=== PATIENT | male | born 1970 | race Caucasian/White ===

== ENCOUNTER 2020-02-22 01:00 | Emergency (ER) | payer SELFPAY ==
[~2020-02-22] VITALS: Ht 165.1 cm; Wt 52.2 kg
--- NOTE | 2020-02-22 01:04 | NUR ---
PT SANDRA DOMINGUEZS. TAKEN TO OVERFLOW TENT
[2020-02-22 01:10] VITALS: BP 108/60
--- NOTE | 2020-02-22 01:10 | NUR ---
PT ASSESSMENT COMPLETE. PT PLACED IN TENT TO A/W EVALUATION. PT WEARING MASK AT THIS TIME.
[2020-02-22] MEDS ORDERED: KETOROLAC 60 MG/2 ML VIAL IM ONE (01:35)
[2020-02-22 01:51] VITALS: BP 108/60
--- NOTE | 2020-02-22 01:51 | NUR ---
COVID SWAB COLLECTED - SENT TO LAB.
--- NOTE | 2020-02-22 01:52 | NUR ---
Patient discharged with v/s stable. Written and verbal after care instructions given and explained. Patient alert, oriented and verbalized understanding of instructions. Ambulatory with steady gait. All questions addressed prior to discharge. ID band removed. Patient advised to follow up with PMD. Rx of MOTRIN, ZOFRAN given. Patient educated on indication of medication including possible reaction and side effects. Opportunity to ask questions provided and answered.
== END 2020-02-22 01:52 | disposition home or self-care (01) ==
LOC: MED 01:00
DX: M79.10 Myalgia, unspecified site (principal); R11.0 Nausea; F15.10 Other stimulant abuse, uncomplicated; Z20.828 Contact with and (suspected) exposure to other viral communicable diseases
CPT/HCPCS: 96372; 99283; J1885; U0003